=== PATIENT | female | born 1970 | race Caucasian/White ===

== ENCOUNTER 2021-07-15 19:08 | Emergency (ER) | payer OTHER ==
[~2021-07-15] VITALS: Ht 160 cm; Wt 65.9 kg
[2021-07-15] MEDS ORDERED: GABA-1201 PO ×2 (19:15→21:40)
[2021-07-15] MEDS ORDERED: LIDOCAINE 1% 10 ML VIAL ID ONE (20:30)
[2021-07-15] MEDS ORDERED: ACETAMINOPHEN 500 MG TABLET PO ONE (20:45)
[2021-07-15 21:25] VITALS: BP 135/89
== END 2021-07-15 22:08 | disposition home or self-care (01) ==
LOC: EMS 19:08
DX: S01.112A Laceration without foreign body of left eyelid and periocular area, initial encounter (principal); F17.210 Nicotine dependence, cigarettes, uncomplicated; Z90.710 Acquired absence of both cervix and uterus; W19.XXXA Unspecified fall, initial encounter; Y93.89 Activity, other specified; Y92.89 Other specified places as the place of occurrence of the external cause; Y99.8 Other external cause status
CPT/HCPCS: 12013; 99282; J3490